=== PATIENT | female | born 1995 | race African-American/Black ===

== ENCOUNTER → 2017-05-29 | Outpatient (CLI) | payer OTHER ==
--- NOTE | 2017-05-29 18:22 | RAD ---
Examination: 2 views of the chest HISTORY: History of chest pain COMPARISON: None available FINDINGS: The cardiomediastinal silhouette grossly appears unremarkable. There is no acute infiltrate or visualized pneumothorax identified. IMPRESSION: No acute cardiopulmonary findings. Electronically signed by: Abhinav Mack MD (05/29/2017 6:18 PM) [facility]
== END | disposition home or self-care (01) ==
LOC: RAD 17:30
PROVIDERS: ATTEND Nurse Practitioner Family
DX: S20.219A Contusion of unspecified front wall of thorax, initial encounter (principal); X58.XXXA Exposure to other specified factors, initial encounter; Y93.89 Activity, other specified; Y92.89 Other specified places as the place of occurrence of the external cause; Y99.8 Other external cause status
CPT/HCPCS: 71020

== ENCOUNTER 2018-07-28 00:22 | Emergency (ER) | payer OTHER ==
[~2018-07-28] VITALS: Ht 175.3 cm; Wt 92.1 kg
--- NOTE | 2018-07-28 00:35 | ED.ADGEN ---
Adult General Chief Complaint Chief Complaint "...I ve been since before saturday..they did a strept at [place] and it was positive.. I ve been on augmentin..".." I feel dehydrated....just exhausted.... ".." I have fever blisters".. HPI HPI Patient is a 22 year old female who presents with complaints of fatigue and dehydration. Pt. seen at [place] and found to have a positive strep test. Started on Augmentin 875 twice a day. Patient continues have a sore throat, myalgia, arthralgia, nausea, and malaise. No history of travel. No history of bad food. Has developed fever blisters of lips. 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 Patient normally healthy. No other family unit has been overseas recently. Review of Systems Review of Systems Constitutional: History of fever or chills [] Eyes: Denies change in visual acuity, , or eye pain [] Conjunctivitis HENT: History of nasal congestion and sore throat [] Respiratory: Denies cough or shortness of breath [] Cardiovascular: No additional information not addressed in HPI [] GI: Complaints of generalized abdominal pain. No active , vomiting, bloody stools or diarrhea []History of nausea : Denies dysuria or hematuria [] Musculoskeletal: Complains of generalized arthralgia and myalgia Integument: Denies rash or skin lesions []complaints of fever blisters to lips Neurologic: Denies headache, focal weakness or sensory changes [] Endocrine: Denies polyuria or polydipsia [] All other systems were reviewed and found to be within normal limits, except as documented in this note. Family History Family History Noncontributory Current Medications Current Medications Current Medications Medications (Trade) Dose Ordered Sig/Alexys Start Time Stop Time Status Last Admin Dose Admin Diphenhydramine HCl (Benadryl) 50 mg 1X ONCE 07/28/18 01:00 07/28/18 01:28 DC 07/28/18 01:01 50 MG Lactated Ringer's 1,000 ml @ 1,000 mls/hr Q1H 07/28/18 00:42 07/28/18 01:41 DC 07/28/18 00:54 1,000 MLS/HR Ondansetron HCl (Zofran) 8 mg 1X ONCE 07/28/18 00:45 07/28/18 01:28 DC 07/28/18 00:54 8 MG Allergies Allergies Allergies Coded Allergies Type Severity Reaction Last Updated Verified No Known Allergies Allergy Unknown 07/28/18 Yes Physical Exam Physical Exam Constitutional: Moderately acute distress, non-toxic appearance. [] HENT: Normocephalic, atraumatic, bilateral external ears normal, oropharynx moist, injected pharynx, no oral exudates, nose swollen turbinates and clear rhinorrhea. Fever blisters of lips Eyes: PERRLA, EOMI, conjunctiva injected, no discharge. [] Neck: Normal range of motion, no tenderness, supple, no stridor. [] Cardiovascular:Heart rate regular rhythm, no murmur [] Lungs & Thorax: Bilateral breath sounds clear to auscultation [] Abdomen: Bowel sounds normal, soft, no tenderness, no masses, no pulsatile masses. [] Skin: Warm, dry, no erythema, no rash. [] Back: No tenderness, no CVA tenderness. [] Extremities: No tenderness, no cyanosis, no clubbing, ROM intact, no edema. Generalized myalgia Neurologic: Alert and oriented X 3, normal motor function, normal sensory function, no focal deficits noted. [] Psychologic: Affect anxious, judgement normal, mood normal. [] Current Patient Data Vital Signs Vital Signs Date Time Temp Pulse Resp B/P (MAP) Pulse Ox O2 Delivery O2 Flow Rate FiO2 07/28/18 03:00 110 20 110/69 (83) 98 Room Air 07/28/18 00:31 99.5 Lab Results Laboratory Tests Test 07/28/18 00:48 07/28/18 01:44 07/28/18 01:59 White Blood Count 13.2 x10^3/uL (4.0-11.0) H Red Blood Count 4.76 x10^6/uL (3.50-5.40) Hemoglobin 14.0 g/dL (12.0-15.5) Hematocrit 42.0 % (36.0-47.0) Mean Corpuscular Volume 88 fL (79-100) Mean Corpuscular Hemoglobin 29 pg (25-35) Mean Corpuscular Hemoglobin Concent 33 g/dL (31-37) Red Cell Distribution Width 13.6 % (11.5-14.5) Platelet Count 354 x10^3/uL (140-400) Neutrophils (%) (Auto) 93 % (31-73) H Lymphocytes (%) (Auto) 2 % (24-48) L Monocytes (%) (Auto) 2 % (0-9) Eosinophils (%) (Auto) 2 % (0-3) Basophils (%) (Auto) 1 % (0-3) Neutrophils # (Auto) 12.4 x10^3uL (1.8-7.7) H Lymphocytes # (Auto) 0.3 x10^3/uL (1.0-4.8) L Monocytes # (Auto) 0.3 x10^3/uL (0.0-1.1) Eosinophils # (Auto) 0.2 x10^3/uL (0.0-0.7) Basophils # (Auto) 0.1 x10^3/uL (0.0-0.2) Segmented Neutrophils % 79 % (35-66) H Band Neutrophils % 12 % (0-9) H Lymphocytes % 7 % (24-48) L Monocytes % 1 % (0-10) Eosinophils % 1 % (0-5) Platelet Estimate Adequate (ADEQUATE) Maternal Serum HCG Beta Subunit < 1 mIU/mL (0-6) Sodium Level 138 mmol/L (136-145) Potassium Level 3.5 mmol/L (3.5-5.1) Chloride Level 102 mmol/L (98-107) Carbon Dioxide Level 29 mmol/L (21-32) Anion Gap 7 (6-14) Blood Urea Nitrogen 12 mg/dL (7-20) Creatinine 1.2 mg/dL (0.6-1.0) H Estimated GFR (Cockcroft-Gault) 68.6 Glucose Level 96 mg/dL (70-99) Calcium Level 8.2 mg/dL (8.5-10.1) L Magnesium Level 1.6 mg/dL (1.8-2.4) L Total Bilirubin 0.3 mg/dL (0.2-1.0) Direct Bilirubin 0.1 mg/dL (0.0-0.2) Aspartate Amino Transferase (AST) 12 U/L (15-37) L Alanine Aminotransferase (ALT) 29 U/L (14-59) Alkaline Phosphatase 69 U/L (46-116) Troponin I Quantitative < 0.017 ng/mL (0-0.055) Total Protein 6.7 g/dL (6.4-8.2) Albumin 3.1 g/dL (3.4-5.0) L Lipase 78 U/L (73-393) Influenza Type A (Rapid) Negative (NEGATIVE) Influenza Type B (Rapid) Negative (NEGATIVE) Urine Collection Type Unknown Urine Color Yellow Urine Clarity Clear Urine pH 7.0 Urine Specific [place] 1.015 Urine Protein Neg (NEG-TRACE) Urine Glucose (UA) Neg mg/dL (NEG) Urine Ketones (Stick) Neg mg/dL (NEG) Urine Blood Neg (NEG) Urine Nitrite Neg (NEG) Urine Bilirubin Neg (NEG) Urine Urobilinogen Dipstick 1 mg/dL (0.2 mg/dL) Urine Leukocyte Esterase Neg (NEG) Urine RBC 0 /HPF (0-2) Urine WBC 1-4 /HPF (0-4) Urine Squamous Epithelial Cells Occ /LPF Urine Bacteria 0 /HPF (0-FEW) Urine Opiates Screen Neg (NEG) Urine Methadone Screen Neg (NEG) Urine Barbiturates Neg (NEG) Urine Phencyclidine Screen Neg (NEG) Urine Amphetamine/Methamphetamine Neg (NEG) Urine Benzodiazepines Screen Neg (NEG) Urine Cocaine Screen Neg (NEG) Urine Cannabinoids Screen Neg (NEG) Urine Ethyl Alcohol Neg (NEG) POC Urine HCG, Qualitative hcg negative (Negative) EKG EKG [] Radiology/Procedures Radiology/Procedures [] Course & Med Decision Making Course & Med Decision Making Pertinent Labs and Imaging studies reviewed. (See chart for details) Patient to follow-up at [place]. Patient take Zofran 8 mg up to 4 times a day for nausea and vomiting. Patient take Tylenol and ibuprofen for discomfort. For marked discomfort may take Vicoprofen up 4 times a day. Continue Augmentin. Return if any concerns. [] Final Impression Final Impression 1. History of strep pharyngitis[] 2. Viral syndrome 3. Mild Leukocytosis with 79 seg 12 bands 4. Dehydration Dragon Disclaimer Dragon Disclaimer This electronic medical record was generated, in whole or in part, using a voice recognition dictation system. Dragon Disclaimer This chart was dictated in whole or in part using Voice Recognition software in a busy, high-work load, and often noisy Emergency Department environment. It may contain unintended and wholly unrecognized errors or omissions. Discharge Summary Visit Information Final Diagnosis Problems Medical Problems: (1) Strep pharyngitis Status: Acute (2) Viral syndrome Status: Acute Brief Hospital Course Allergies Allergies Coded Allergies Type Severity Reaction Last Updated Verified No Known Allergies Allergy Unknown 07/28/18 Yes Vital Signs Vital Signs Date Time Temp Pulse Resp B/P (MAP) Pulse Ox O2 Delivery O2 Flow Rate FiO2 07/28/18 03:00 110 20 110/69 (83) 98 Room Air 07/28/18 00:31 99.5 Lab Results Laboratory Tests Test 07/28/18 00:48 07/28/18 01:44 07/28/18 01:59 White Blood Count 13.2 x10^3/uL (4.0-11.0) Red Blood Count 4.76 x10^6/uL (3.50-5.40) Hemoglobin 14.0 g/dL (12.0-15.5) Hematocrit 42.0 % (36.0-47.0) Mean Corpuscular Volume 88 fL (79-100) Mean Corpuscular Hemoglobin 29 pg (25-35) Mean Corpuscular Hemoglobin Concent 33 g/dL (31-37) Red Cell Distribution Width 13.6 % (11.5-14.5) Platelet Count 354 x10^3/uL (140-400) Neutrophils (%) (Auto) 93 % (31-73) Lymphocytes (%) (Auto) 2 % (24-48) Monocytes (%) (Auto) 2 % (0-9) Eosinophils (%) (Auto) 2 % (0-3) Basophils (%) (Auto) 1 % (0-3) Neutrophils # (Auto) 12.4 x10^3uL (1.8-7.7) Lymphocytes # (Auto) 0.3 x10^3/uL (1.0-4.8) Monocytes # (Auto) 0.3 x10^3/uL (0.0-1.1) Eosinophils # (Auto) 0.2 x10^3/uL (0.0-0.7) Basophils # (Auto) 0.1 x10^3/uL (0.0-0.2) Segmented Neutrophils % 79 % (35-66) Band Neutrophils % 12 % (0-9) Lymphocytes % 7 % (24-48) Monocytes % 1 % (0-10) Eosinophils % 1 % (0-5) Platelet Estimate Adequate (ADEQUATE) Maternal Serum HCG Beta Subunit < 1 mIU/mL (0-6) Sodium Level 138 mmol/L (136-145) Potassium Level 3.5 mmol/L (3.5-5.1) Chloride Level 102 mmol/L (98-107) Carbon Dioxide Level 29 mmol/L (21-32) Anion Gap 7 (6-14) Blood Urea Nitrogen 12 mg/dL (7-20) Creatinine 1.2 mg/dL (0.6-1.0) Estimated GFR (Cockcroft-Gault) 68.6 Glucose Level 96 mg/dL (70-99) Calcium Level 8.2 mg/dL (8.5-10.1) Magnesium Level 1.6 mg/dL (1.8-2.4) Total Bilirubin 0.3 mg/dL (0.2-1.0) Direct Bilirubin 0.1 mg/dL (0.0-0.2) Aspartate Amino Transf (AST/SGOT) 12 U/L (15-37) Alanine Aminotransferase (ALT/SGPT) 29 U/L (14-59) Alkaline Phosphatase 69 U/L (46-116) Troponin I Quantitative < 0.017 ng/mL (0-0.055) Total Protein 6.7 g/dL (6.4-8.2) Albumin 3.1 g/dL (3.4-5.0) Lipase 78 U/L (73-393) Influenza Type A (Rapid) Negative (NEGATIVE) Influenza Type B (Rapid) Negative (NEGATIVE) Urine Collection Type Unknown Urine Color Yellow Urine Clarity Clear Urine pH 7.0 Urine Specific [place] 1.015 Urine Protein Neg (NEG-TRACE) Urine Glucose (UA) Neg mg/dL (NEG) Urine Ketones (Stick) Neg mg/dL (NEG) Urine Blood Neg (NEG) Urine Nitrite Neg (NEG) Urine Bilirubin Neg (NEG) Urine Urobilinogen Dipstick 1 mg/dL (0.2 mg/dL) Urine Leukocyte Esterase Neg (NEG) Urine RBC 0 /HPF (0-2) Urine WBC 1-4 /HPF (0-4) Urine Squamous Epithelial Cells Occ /LPF Urine Bacteria 0 /HPF (0-FEW) Urine Opiates Screen Neg (NEG) Urine Methadone Screen Neg (NEG) Urine Barbiturates Neg (NEG) Urine Phencyclidine Screen Neg (NEG) Urine Amphetamine/Methamphetamine Neg (NEG) Urine Benzodiazepines Screen Neg (NEG) Urine Cocaine Screen Neg (NEG) Urine Cannabinoids Screen Neg (NEG) Urine Ethyl Alcohol Neg (NEG) Bedside Urine HCG, Qualitative hcg negative (Negative) Brief Hospital Course Ms. Porter is a 22 old female who presented with Hx. + Strept at [place]. On Augmentin. Suspect pt. also has viral syndrome. Discharge Information Condition at Discharge: Improved, Stable Disposition/Orders: D/C to Home Dischare Medications Current Medications Lactated Ringer's 1,000 ml @ 1,000 mls/hr Q1H IV Last administered on at 00:54; Admin Dose 1,000 MLS/HR; Start 07/28/18 at 00:42; Stop 07/28/18 at 01:41; Status DC Ondansetron HCl (Zofran) 8 mg 1X ONCE IV Last administered on 07/28/18at 00:54 ; Admin Dose 8 MG; Start 07/28/18 at 00:45; Stop 07/28/18 at 01:28; Status DC Diphenhydramine HCl (Benadryl) 50 mg 1X ONCE IVP Last administered on at 01:01; Admin Dose 50 MG; Start 07/28/18 at 01:00; Stop 07/28/18 at 01:28; Status DC Active Scripts Active Zofran (Ondansetron Hcl) 8 Mg Tablet 8 Mg PO QIDPRN PRN Hydrocodone-Ibuprofen 7.5-200 (Hydrocodone/Ibuprofen) 1 Each Tablet 1 Tab PO PRN Q6HRS PRN MEIR MOREAU MD Jul 28, 2018 00:35
[2018-07-28] MEDS ORDERED: ONDANSETRON PF 4 MG/2 ML VIAL. ONE (00:41)
[2018-07-28] MEDS ORDERED: IV RINGERS SOLUTION,LACTATED 1,000 ML IV SCH (00:42)
[2018-07-28] MEDS ORDERED: ONDANSETRON PF 4 MG/2 ML VIAL. IV ONE (00:45)
[2018-07-28] MEDS ORDERED: diphenhydrAMINE 50 MG/ML VIAL ONE (00:58)
[2018-07-28] MEDS ORDERED: diphenhydrAMINE 50 MG/ML VIAL IVP ONE (01:00)
[2018-07-28 01:20] LABS: BASO # 0.1 x10^3/uL (0.0-0.2); BASO % 1 % (0-3); EOS # 0.2 x10^3/uL (0.0-0.7); EOS % 2 % (0-3); LYMPH # 0.3 x10^3/uL (1.0-4.8); LYMPH % 2 % (24-48); MEAN CORPUSCULAR HEMOGLOBIN 29 pg (25-35); MEAN CORPUSCULAR HGB CONC 33 g/dL (31-37); MEAN CORPUSCULAR VOLUME 88 fL (79-100); MONO # 0.3 x10^3/uL (0.0-1.1); MONO % 2 % (0-9); NEUT # 12.4 x10^3uL (1.8-7.7); NEUT % 93 % (31-73); PLATELET COUNT 354 x10^3/uL (140-400); RED BLOOD COUNT 4.76 x10^6/uL (3.50-5.40); RED CELL DISTRIBUTION WIDTH 13.6 % (11.5-14.5); WHITE BLOOD COUNT 13.2 x10^3/uL (4.0-11.0)
[2018-07-28 01:32] LABS: ALBUMIN 3.1 g/dL (3.4-5.0); CALCIUM 8.2 mg/dL (8.5-10.1); CREATININE 1.2 mg/dL (0.6-1.0); DIRECT BILIRUBIN 0.1 mg/dL (0.0-0.2); GFR 68.6; MAGNESIUM 1.6 mg/dL (1.8-2.4); POTASSIUM 3.5 mmol/L (3.5-5.1); TOTAL BILIRUBIN 0.3 mg/dL (0.2-1.0); TOTAL PROTEIN 6.7 g/dL (6.4-8.2)
[2018-07-28 02:12] LABS: % BANDS 12 % (0-9); % EOS 1 % (0-5); % LYMPHS 7 % (24-48); % MONOS 1 % (0-10); % SEGS 79 % (35-66); PLT ESTIMATE ADEQUATE (ADEQUATE)
[2018-07-28 02:27] LABS: BARBITURATES NEG (NEG); BENZODIAZEPINES NEG (NEG); CANNABINOIDS NEG (NEG); COCAINE NEG (NEG); METHADONE NEG (NEG); OPIATES NEG (NEG); PHENCYCLIDINE NEG (NEG)
[2018-07-28 02:28] LABS: BACTERIA,URINE 0 /HPF (0-FEW); BILIRUBIN,URINE NEG (NEG); CLARITY,URINE CLEAR; COLOR,URINE YELLOW; GLUCOSE,URINE NEG (NEG); NITRITE,URINE NEG (NEG); RBC,URINE 0 /HPF (0-2); SQUAMOUS EPITHELIAL CELL,UR OCC /LPF; UROBILINOGEN,URINE 1 mg/dL (0.2 mg/dL)
[2018-07-28 02:30] LABS: INFLUENZA A PATIENT NEGATIVE (NEGATIVE); INFLUENZA B PATIENT NEGATIVE (NEGATIVE)
[2018-07-28 02:31] LABS: AMPHETAMINE/METHAMPHETAMINE NEG (NEG)
[2018-07-28 03:00] VITALS: BP 110/69
[2018-07-28] MEDS ORDERED: ONDA8TAB9 PO (03:16)
[2018-07-28] MEDS ORDERED: HYDR-1179 PO (03:16)
[2018-07-30] MEDS ORDERED: methylPREDNISolone SOD SUCC PF 40 MG/ML VIAL. IV SCH (14:00)
[2018-07-31] MEDS ORDERED: DIPH25CA58 PO (14:44)
[2018-07-31] MEDS ORDERED: PRED20TA PO (14:44)
[2018-07-31] MEDS ORDERED: FAMO-63 PO (14:44)
== END 2018-07-28 03:20 | disposition home or self-care (01) ==
LOC: ER 00:22
DX: B34.9 Viral infection, unspecified (principal); D72.829 Elevated white blood cell count, unspecified; E86.0 Dehydration; J02.0 Streptococcal pharyngitis; B95.0 Streptococcus, group A, as the cause of diseases classified elsewhere
CPT/HCPCS: 36415; 80048; 80076; 80307; 81001; 81025; 83690; 83735; 84484; 84702; 85007; 85025; 87804; 96361; 96374; 96375; 99283; J1200; J2405; J7120

== ENCOUNTER 2018-07-30 05:58 | Inpatient (IN) | payer OTHER ==
[~2018-07-30] VITALS: Ht 175.3 cm; Wt 94.0 kg
[~2018-07-30 05:58] MED LIST: HYDR-1179 PO; ONDA8TAB9 PO
[2018-07-30] MEDS ORDERED: IV NORMAL SALINE 1,000ML 1,000 ML IV SCH (06:15)
[2018-07-30] MEDS ORDERED: ACETAMINOPHEN 500 MG TABLET PO ONE (06:30)
[2018-07-30] MEDS ORDERED: methylPREDNISolone SOD SUCC PF 125 MG/2 ML VIAL. IV ONE (06:30)
[2018-07-30] MEDS ORDERED: FAMOTIDINE 20 MG/2 ML VIAL IVP ONE (06:30)
[2018-07-30] MEDS ORDERED: IV NORMAL SALINE 1,000ML 1,000 ML IV ONE ×2 (06:30→09:00)
[2018-07-30] MEDS ORDERED: diphenhydrAMINE 50 MG/ML VIAL IV ONE (06:30)
[2018-07-30 07:01] LABS: BASO % 0 % (0-3); EOS # 0.2 x10^3/uL (0.0-0.7); EOS % 3 % (0-3); HEMATOCRIT 41.1 % (36.0-47.0); HEMOGLOBIN 13.9 g/dL (12.0-15.5); LYMPH # 0.8 x10^3/uL (1.0-4.8); LYMPH % 16 % (24-48); MEAN CORPUSCULAR HEMOGLOBIN 30 pg (25-35); MEAN CORPUSCULAR HGB CONC 34 g/dL (31-37); MEAN CORPUSCULAR VOLUME 88 fL (79-100); MONO # 0.2 x10^3/uL (0.0-1.1); MONO % 3 % (0-9); NEUT # 4.2 x10^3uL (1.8-7.7); NEUT % 78 % (31-73); PLATELET COUNT 253 x10^3/uL (140-400); RED BLOOD COUNT 4.69 x10^6/uL (3.50-5.40); RED CELL DISTRIBUTION WIDTH 13.5 % (11.5-14.5)
[2018-07-30 07:14] LABS: ALBUMIN 2.9 g/dL (3.4-5.0); ALBUMIN/GLOBULIN RATIO 0.7 (1.0-1.7); CREATININE 1.2 mg/dL (0.6-1.0); GFR 68.6; TOTAL BILIRUBIN 0.3 mg/dL (0.2-1.0); TOTAL PROTEIN 6.8 g/dL (6.4-8.2)
[2018-07-30 07:23] LABS: MONONUCLEOSIS PATIENT NEGATIVE (NEGATIVE)
[2018-07-30 07:40] LABS: INFLUENZA A PATIENT NEGATIVE (NEGATIVE); INFLUENZA B PATIENT NEGATIVE (NEGATIVE)
--- NOTE | 2018-07-30 07:43 | RAD ---
Chest, 2 views, 07/30/2018: HISTORY: Fever, bodyaches, chest pain, sore throat Comparison is made to a study from 05/29/2017. The heart size and pulmonary vascularity are normal. No pulmonary infiltrate is seen. There is no evidence of pleural fluid. IMPRESSION: No acute cardiopulmonary abnormality is detected. Electronically signed by: Drake Lowry MD (07/30/2018 7:41 AM) [facility]
[2018-07-30 07:47] LABS: % ATYL 1 % (0-0); % BANDS 53 % (0-9); % EOS 1 % (0-5); % LYMPHS 16 % (24-48); % METAS 5 % (0-0); % MONOS 1 % (0-10); % SEGS 23 % (35-66)
[2018-07-30 07:57] LABS: PLT ESTIMATE ADEQUATE (ADEQUATE); TOXIC GRANULATION PRESENT; TOXIC VACUOLATION PRESENT
--- NOTE | 2018-07-30 07:58 | PHYS DOC ---
Past History Past Medical History: No Pertinent History Past Surgical History: No Surgical History Alcohol Use: Occasionally Drug Use: None Adult General Chief Complaint Chief Complaint: ALLERGIC REACTION HPI HPI Patient is a 22 year old female who brought in by EMS because of allergic reaction. Patient states she was seen by her primary care physician 10 days ago because of sore throat and fever and had positive strep test and treated with Augmentin. Patient didn't feeling better and sent to ENT 3 days after her first visit with concern for tonsillar abscess. ENT report patient that she didn't have abscess and started the patient on Bactrim beside Augmentin. Patient had general malaise rash since yesterday morning and her physician stopped back in and started Zithromax since last night. Patient states she had low blood pressure of 80s yesterday with continuing fever, nausea and vomiting, generalized weakness and sore throat and not feeling good and called 911 today. Patient had fever as high as 103 yesterday and had generalized rash without shortness of breath. Patient had facial swelling today. Review of Systems Review of Systems Constitutional: Reports fever and chills Eyes: Denies change in visual acuity, redness, or eye pain [] HENT: Denies nasal congestion, reports sore throat [] Respiratory: Denies cough or shortness of breath [] Cardiovascular: No additional information not addressed in HPI [] GI: Denies abdominal pain, nausea, vomiting, bloody stools or diarrhea [] : Denies dysuria or hematuria [] Musculoskeletal: Denies back pain or joint pain [] Integument: Reports rash Neurologic: Reports headache, denies focal weakness or sensory changes [] Endocrine: Denies polyuria or polydipsia [] All other systems were reviewed and found to be within normal limits, except as documented in this note. Current Medications Current Medications Current Medications Medications (Trade) Dose Ordered Sig/Alexys Start Time Stop Time Status Last Admin Dose Admin Acetaminophen (Tylenol) 1,000 mg 1X ONCE 07/30/18 06:30 07/30/18 06:31 DC 07/30/18 06:45 1,000 MG Diphenhydramine HCl (Benadryl) 50 mg 1X ONCE 07/30/18 06:30 07/30/18 06:31 DC 07/30/18 06:46 50 MG Famotidine (Pepcid Vial) 20 mg 1X ONCE 07/30/18 06:30 07/30/18 06:31 DC 07/30/18 06:45 20 MG Methylprednisolone Sodium Succinate (SOLU-Medrol 125MG VIAL) 125 mg 1X ONCE 07/30/18 06:30 07/30/18 06:31 DC 07/30/18 06:44 125 MG Sodium Chloride 1,000 ml @ 1,000 mls/hr 1X ONCE 07/30/18 06:30 07/30/18 07:29 DC 07/30/18 06:44 1,000 MLS/HR Allergies Allergies Allergies Coded Allergies Type Severity Reaction Last Updated Verified No Known Allergies Allergy Unknown 07/28/18 Yes Physical Exam Physical Exam Constitutional: Well developed, well nourished, moderate acute distress, non- toxic appearance. [] HENT: Normocephalic, atraumatic, bilateral external ears normal, oropharynx moist, tonsillar erythema and edema, moderate and large mental status and right side no oral exudates, nose normal. [] Eyes: PERRLA, EOMI, conjunctiva normal, no discharge. [] Neck: Normal range of motion, no tenderness, supple, no stridor. [] Cardiovascular: Tachycardia, no murmur [] Lungs & Thorax: Bilateral breath sounds clear to auscultation [] Abdomen: Bowel sounds normal, soft, no tenderness, no masses, no pulsatile masses. [] Skin: Warm, dry, and generalized micropapular rash in face and trunk and extremities Back: No tenderness, no CVA tenderness. [] Extremities: No tenderness, no cyanosis, no clubbing, ROM intact, no edema. [] Neurologic: Alert and oriented X 3, normal motor function, normal sensory function, no focal deficits noted. [] Psychologic: Affect normal, judgement normal, mood normal. [] Current Patient Data Vital Signs Vital Signs Date Time Temp Pulse Resp B/P (MAP) Pulse Ox O2 Delivery O2 Flow Rate FiO2 07/30/18 07:10 103.0 108 18 104/44 (64) 100 Room Air Lab Results Laboratory Tests Test 07/30/18 06:20 07/30/18 06:30 07/30/18 07:00 White Blood Count 5.4 x10^3/uL (4.0-11.0) # Red Blood Count 4.69 x10^6/uL (3.50-5.40) Hemoglobin 13.9 g/dL (12.0-15.5) Hematocrit 41.1 % (36.0-47.0) Mean Corpuscular Volume 88 fL (79-100) Mean Corpuscular Hemoglobin 30 pg (25-35) Mean Corpuscular Hemoglobin Concent 34 g/dL (31-37) Red Cell Distribution Width 13.5 % (11.5-14.5) Platelet Count 253 x10^3/uL (140-400) Neutrophils (%) (Auto) 78 % (31-73) H Lymphocytes (%) (Auto) 16 % (24-48) L Monocytes (%) (Auto) 3 % (0-9) Eosinophils (%) (Auto) 3 % (0-3) Basophils (%) (Auto) 0 % (0-3) Neutrophils # (Auto) 4.2 x10^3uL (1.8-7.7) Lymphocytes # (Auto) 0.8 x10^3/uL (1.0-4.8) L Monocytes # (Auto) 0.2 x10^3/uL (0.0-1.1) Eosinophils # (Auto) 0.2 x10^3/uL (0.0-0.7) Basophils # (Auto) 0.0 x10^3/uL (0.0-0.2) Platelet Estimate Pending Sodium Level 131 mmol/L (136-145) L Potassium Level 4.0 mmol/L (3.5-5.1) Chloride Level 96 mmol/L (98-107) L Carbon Dioxide Level 27 mmol/L (21-32) Anion Gap 8 (6-14) Blood Urea Nitrogen 10 mg/dL (7-20) Creatinine 1.2 mg/dL (0.6-1.0) H Estimated GFR (Cockcroft-Gault) 68.6 BUN/Creatinine Ratio 8 (6-20) Glucose Level 89 mg/dL (70-99) Calcium Level 8.0 mg/dL (8.5-10.1) L Magnesium Level 1.9 mg/dL (1.8-2.4) Total Bilirubin 0.3 mg/dL (0.2-1.0) Aspartate Amino Transferase (AST) 52 U/L (15-37) H Alanine Aminotransferase (ALT) 70 U/L (14-59) H Alkaline Phosphatase 89 U/L (46-116) Total Protein 6.8 g/dL (6.4-8.2) Albumin 2.9 g/dL (3.4-5.0) L Albumin/Globulin Ratio 0.7 (1.0-1.7) L Heterophil Agglutinins Negative (NEGATIVE) Group A Streptococcus Rapid Negative (NEGATIVE) Influenza Type A (Rapid) Negative (NEGATIVE) Influenza Type B (Rapid) Negative (NEGATIVE) EKG EKG [] Radiology/Procedures Radiology/[place] [address] IMAGING REPORT Signed PATIENT: CARLTON MCLAIN ACCOUNT: [id number] : 1995 LOCATION: ER AGE: 22 SEX: F EXAM STATUS: REG ER ORD. PHYSICIAN: JUNIOR BROWN MD REASON: fever - body aches, chest pain, sore throat since Saturday PROCEDURE: CHEST PA & LATERAL Chest, 2 views, 07/30/2018: HISTORY: Fever, bodyaches, chest pain, sore throat Comparison is made to a study from 05/29/2017. The heart size and pulmonary vascularity are normal. No pulmonary infiltrate is seen. There is no evidence of pleural fluid. IMPRESSION: No acute cardiopulmonary abnormality is detected. Electronically signed by: Drake Lowry MD (07/30/2018 7:41 AM) [facility] DICTATED AND SIGNED BY: DRAKE LOWRY MD DATE: 07/30/18 1968 CC: JUNIOR BROWN MD; CLARI WANG ~ Course & Med Decision Making Course & Med Decision Making Pertinent Labs and Imaging studies reviewed. (See chart for details) Evaluation of patient in ER showed 22-year-old female patient with history of strep throat with continuing fever and pain and developing denies any she rash. Patient was febrile and tachycardic at arrival to ER. She had bandemia with 53% . Patient had troponin blood pressure to 90s but increased with IV fluids to more than 100 and improvement of fever and tachycardia. Plan to admit to hospitalist. Dr. Salgado accepted admission at 0754. Mohsen Disclaimer Mohsen Disclaimer This electronic medical record was generated, in whole or in part, using a voice recognition dictation system. Departure Departure: Impression: Primary Impression: SIRS (systemic inflammatory response syndrome) Additional Impressions: Allergic reaction to drug Pharyngitis Dehydration Generalized weakness Elevated liver function tests Bandemia without diagnosis of specific infection Disposition: 09 ADMITTED INPATIENT (at 0 755) Admitting Physician: Prabhjot Salgado (accepted admission at 0754) Condition: IMPROVED Referrals: CLARI WANG (PCP) Critical Care Time Critical care time was 90 minutes exclusive of procedures. Problem Qualifiers JUNIOR BROWN MD Jul 30, 2018 07:58
[2018-07-30 08:41] LABS: CLARITY,URINE CLOUDY; COLOR,URINE AMBER; GLUCOSE,URINE NEG (NEG)
[2018-07-30] MEDS ORDERED: IV NORMAL SALINE 50ML 50 ML ONE (08:41)
[2018-07-30] MEDS ORDERED: cefTRIAXone SODIUM 1 GM VIAL ONE (08:41)
[2018-07-30 08:42] LABS: BACTERIA,URINE FEW /HPF (0-FEW); BILIRUBIN,URINE SMALL (NEG); NITRITE,URINE NEG (NEG); RBC,URINE RARE /HPF (0-2); UROBILINOGEN,URINE 0.2 mg/dL (0.2 mg/dL); WBC,URINE OCC /HPF (0-4)
[2018-07-30 08:43] LABS: GRANULAR CASTS,URINE OCC /HPF; SQUAMOUS EPITHELIAL CELL,UR OCC /LPF
[2018-07-30 09:46] VITALS: BP 99/59
[2018-07-30] MEDS: IV NORMAL SALINE 1,000ML 1,000 ML IV SCH ×3 (10:11→23:27)
[2018-07-30 14:03] VITALS: BP 88/52
[2018-07-30 14:04] VITALS: BP 101/62
[2018-07-30 14:05] VITALS: BP 72/47
[2018-07-30] MEDS: methylPREDNISolone SOD SUCC PF 40 MG/ML VIAL. IV SCH ×2 (14:25→21:27)
--- NOTE | 2018-07-30 14:44 | HP ---
ADMIT DATE: 07/30/2018 HISTORY OF PRESENT ILLNESS: The patient is a 22-year-old female patient who came to the Emergency Room, complains of aches and pains all over, chest pain, sore throat since Saturday. She was apparently originally diagnosed with streptococcal sore throat for which she was treated and was discharged; however, there was suspicion that she might have a tonsillar abscess, was seen by the ENT surgeon who diagnosed her with what seems to be otitis media and started her on Bactrim and since then, the patient has developed a skin rash, generalized allergic reaction to a drug with nausea, vomiting and dehydration, generalized weakness. Her liver enzymes have also slightly elevated. She was seen in the Emergency Room and was treated with IV steroids as well as Benadryl and famotidine, was given IV fluid as well as IV antibiotic and was admitted with a diagnosis of allergic reaction to BACTRIM. PAST MEDICAL HISTORY: Unremarkable. PAST SURGICAL HISTORY: Unremarkable. ALLERGIES: Never had any drug allergy before. She is now allergic to SULFAMETHOXAZOLE and TRIMETHOPRIM. MEDICATIONS: She has not been on any medication. FAMILY HISTORY: She has one sister who is healthy. Her parents are healthy. SOCIAL HISTORY: She is student, works as a day care. She does not smoke. Drinks alcohol occasionally. Does not use any drugs. PHYSICAL EXAMINATION: GENERAL: On examining her this afternoon, she was resting slightly propped up in bed, in no apparent respiratory distress. There is no pallor, jaundice, cyanosis, or thyromegaly. No jugular venous distension. No lower limb edema. VITAL SIGNS: Her heart rate was 80, blood pressure was 99/59, temperature was 98.2, respiratory rate was 20, and oxygen saturation was 93%. HEAD: Showed normocephalic, atraumatic. NECK: Supple. HEART: Showed normal first and second heart sounds with no gallop, rub or murmur. CHEST: Clear to auscultation. No crepitation or rhonchi. ABDOMEN: Distended, soft, nontender. No guarding or rigidity. No organomegaly. All hernial orifice are intact. Bowel sounds are normal. NEUROLOGIC: She was awake, alert, responding appropriately. Currently, her allergic reaction has largely subsided. All the erythema on the skin has resolved; however, she continued to have marked soft tissue swelling of her both legs and face. LABORATORY DATA: Her lab work this morning showed a white cell count of 5400, hemoglobin 13.9, hematocrit was 41, MCV 88, and platelet count of 253,000. Her chemistry showed a serum sodium 131, potassium 4, chloride 96, bicarbonate 27, anion gap of 8, BUN 10, creatinine 1.2, estimated GFR was 68 mL per minute. Her glucose was 89, calcium was 8. Total bilirubin and alkaline phosphatase are normal. AST and ALT are slightly elevated. Total protein was 6.8, albumin was 2.9. Her magnesium was 1.9, lactic acid is only 1.1. ASSESSMENT: This is a 22-year-old female The patient was admitted with what seems to be allergic reaction to SULFAMETHOXAZOLE. Will continue with IV fluid, continue with steroids, Benadryl, famotidine. Continue one dose of Rocephin to take care of focal infection daily and I think she probably has received enough antibiotics for treatment of streptococcus, sore throat and she remains stable. Tomorrow, we can discharge her home with a tapering course of steroids. JAKY TERESA MD DR: ROSS/kendall JOB#: [id number] / [id number]
[2018-07-30 18:47] VITALS: BP 115/78
[2018-07-30] MEDS: FAMOTIDINE 20 MG/2 ML VIAL IVP SCH (21:28)
[2018-07-30 23:05] VITALS: BP 120/77
[2018-07-30] MEDS: diphenhydrAMINE 50 MG/ML VIAL IVP PRN (23:18)
[2018-07-31 05:42] VITALS: BP 119/77
[2018-07-31] MEDS: IV NORMAL SALINE 1,000ML 1,000 ML IV SCH (05:48)
[2018-07-31] MEDS: methylPREDNISolone SOD SUCC PF 40 MG/ML VIAL. IV SCH ×2 (05:49→14:08)
[2018-07-31 06:25] LABS: BASO % 0 % (0-3); EOS % 0 % (0-3); HEMATOCRIT 34.9 % (36.0-47.0); HEMOGLOBIN 11.5 g/dL (12.0-15.5); LYMPH % 18 % (24-48); MEAN CORPUSCULAR HEMOGLOBIN 29 pg (25-35); MEAN CORPUSCULAR HGB CONC 33 g/dL (31-37); MEAN CORPUSCULAR VOLUME 89 fL (79-100); MONO # 0.6 x10^3/uL (0.0-1.1); MONO % 6 % (0-9); NEUT # 8.5 x10^3uL (1.8-7.7); NEUT % 75 % (31-73); PLATELET COUNT 220 x10^3/uL (140-400); RED BLOOD COUNT 3.93 x10^6/uL (3.50-5.40); RED CELL DISTRIBUTION WIDTH 13.9 % (11.5-14.5); WHITE BLOOD COUNT 11.2 x10^3/uL (4.0-11.0)
[2018-07-31] MEDS: diphenhydrAMINE 50 MG/ML VIAL IVP PRN (06:29)
[2018-07-31 07:04] LABS: ALBUMIN 2.5 g/dL (3.4-5.0); ALBUMIN/GLOBULIN RATIO 0.7 (1.0-1.7); CALCIUM 7.6 mg/dL (8.5-10.1); CREATININE 0.6 mg/dL (0.6-1.0); GFR 152.7; POTASSIUM 4.2 mmol/L (3.5-5.1); TOTAL BILIRUBIN 0.2 mg/dL (0.2-1.0); TOTAL PROTEIN 6.1 g/dL (6.4-8.2)
[2018-07-31] MEDS: FAMOTIDINE 20 MG/2 ML VIAL IVP SCH (08:11)
[2018-07-31 12:00] VITALS: BP 118/73
[2018-07-31 13:15] LABS: WHITE BLOOD COUNT 5.4 x10^3/uL (4.0-11.0)
[2018-07-31] MEDS ORDERED: FAMO-63 PO (14:44)
[2018-07-31] MEDS ORDERED: PRED20TA PO (14:44)
[2018-07-31] MEDS ORDERED: DIPH25CA58 PO (14:44)
--- NOTE | 2018-07-31 18:43 | DS ---
DATE OF DISCHARGE: 07/31/2018 HOSPITAL COURSE: The patient is resting, slightly propped up in bed, in no apparent distress. Most of the erythema has gone. She has no further episodes of hypertension, continued to have some of redness around her cheeks, but all the erythema around most of her face, neck and torso has largely subsided. She continued to have some chest discomfort but no chest tightness or wheezing. PHYSICAL EXAMINATION: GENERAL: When I examined her, she looked well and was clearly in no apparent respiratory distress. No pallor, jaundice, cyanosis, or thyromegaly. No jugular venous distension. No limb edema. VITAL SIGNS: Her heart rate was 57, blood pressure was 118/73, temperature was 98, respiratory rate was 18 and her oxygen saturation was 97% on room air. HEENT: Examination of the head, eyes, ears, nose and throat showed normocephalic, atraumatic. NECK: Supple. HEART: Showed normal first and second heart sounds with no gallop, rub or murmur. CHEST: Clear to auscultation. No crepitation or rhonchi. ABDOMEN: Distended, soft, nontender. No guarding or rigidity. No organomegaly. Her hernial orifices are intact. Bowel sounds normal. NEUROLOGIC: She was awake, alert, responding appropriately. All her cranial nerves are intact. She moves extremities without difficulty. She has no orthostatic hypotension this morning. Her intake was 3720. No output was recorded. LABORATORY DATA: Her lab work this morning showed a serum sodium 139, potassium 4.2, chloride 108, bicarbonate 21, anion gap of 10, BUN of 7, creatinine 0.6, estimated GFR was 152 mL per minute. Her glucose 140, calcium was 7.6. Total bilirubin, AST, ALT, alkaline phosphatase were normal. Total protein was 6.1, albumin was 2.5. Her white cell count was 11,200, hemoglobin 11.5, hematocrit 34.9, MCV 89 and platelet count 220,000. Her heterophile agglutinin was negative. Influenza A and B were negative. Group A Streptococcus rapid test was negative. Urinalysis was essentially unremarkable. DISCHARGE MEDICATIONS: She was discharged home to continue with tapering course of steroids in the form of prednisone 40 mg p.o. daily for 2 days, then 30 mg once a day for 2 days, 20 mg once a day for 2 days, and 10 mg once a day for 2 days; Pepcid 20 mg twice a day. She can take Benadryl 25 mg every 4 hours as needed. DISCHARGE FOLLOWUP: Should follow with her primary care physician. FINAL DISCHARGE DIAGNOSES: Allergic reaction to Bactrim, Streptococcal pharyngitis treated with multiple courses of antibiotic. JAKY TERESA MD DR: ROSS/kendall JOB#: [id number] / [id number]
== END 2018-07-31 15:43 | disposition home or self-care (01) | DRG 871 ==
LOC: ER 05:58 → 1 SOUTH 07:55
PROVIDERS: ADMIT Internal Medicine; ATTEND Internal Medicine
DX: A41.9 Sepsis, unspecified organism (principal); E43 Unspecified severe protein-calorie malnutrition; N17.0 Acute kidney failure with tubular necrosis; J02.0 Streptococcal pharyngitis; E86.0 Dehydration; H66.90 Otitis media, unspecified, unspecified ear; T37.0X5A Adverse effect of sulfonamides, initial encounter; Y92.89 Other specified places as the place of occurrence of the external cause
CPT/HCPCS: 36415; 71046; 80053; 81001; 83605; 83735; 85007; 85025; 86308; 87040; 87070; 87804; 87880; 96361; 96365; 96375; 99292; J0696; J1200; J2920; J2930; J3490; 99291-25; J7030

== ENCOUNTER → 2018-11-03 | Outpatient (CLI) | payer OTHER ==
[~2018-11-03] MED LIST changes: +DIPH25CA58 PO; +FAMO-63 PO; +PRED20TA PO
[2018-11-03 11:11] LABS: BASO % 0 % (0-3); EOS # 0.1 x10^3/uL (0.0-0.7); EOS % 2 % (0-3); HEMATOCRIT 38.1 % (36.0-47.0); HEMOGLOBIN 12.9 g/dL (12.0-15.5); LYMPH # 2.2 x10^3/uL (1.0-4.8); LYMPH % 33 % (24-48); MEAN CORPUSCULAR HEMOGLOBIN 30 pg (25-35); MEAN CORPUSCULAR HGB CONC 34 g/dL (31-37); MEAN CORPUSCULAR VOLUME 89 fL (79-100); MONO # 0.5 x10^3/uL (0.0-1.1); MONO % 7 % (0-9); NEUT % 58 % (31-73); PLATELET COUNT 317 x10^3/uL (140-400); RED BLOOD COUNT 4.28 x10^6/uL (3.50-5.40); WHITE BLOOD COUNT 6.8 x10^3/uL (4.0-11.0)
== END | disposition home or self-care (01) ==
LOC: LAB 09:46
PROVIDERS: ATTEND Anesthesiology
DX: Z41.1 Encounter for cosmetic surgery (principal)
CPT/HCPCS: 36415; 85025